=== PATIENT | male | born 1990 | race Caucasian/White ===

== ENCOUNTER 2016-03-28 10:43 | Emergency (ER) | payer BC ==
[2016-03-28 11:02] VITALS: BP 129/90; PULSE 52; RESP 15; TEMP 97.6
--- NOTE | 2016-03-28 11:43 | ED ---
General Adult HPI - General Chief complaint: Back Pain/Injury Stated complaint: back pain Time Seen by Provider: 03/28/16 11:15 Source: patient, RN notes reviewed, old records reviewed Mode of arrival: ambulatory Limitations: no limitations - History of Present Illness Initial comments: This is a 25-year-old male ER for evaluation of back pain. Patient has thoracic back pain. Chronic history of thoracic back pain, no specific medical history, no recent trauma. 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 Patient refusing medication for pain. States that she was chronic and would just like to get someone to make a diagnosis or help him with therapy. - Related Data Home Medications Medication Instructions Recorded Confirmed No Known Home Medications [No 03/28/16 03/28/16 Known Home Medications] Allergies Allergy/AdvReac Type Severity Reaction Status Date / Time No Known Allergies Allergy Verified 03/28/16 11:02 Review of Systems ROS Statement: Those systems with pertinent positive or pertinent negative responses have been documented in the HPI. ROS Other: All systems not noted in ROS Statement are negative. Past Medical History Past Medical History: No Reported History Additional Past Medical History / Comment(s): chronic back pain, heat murmur, leaking aortic valve History of Any Multi-Drug Resistant Organisms: None Reported Past Surgical History: No Surgical Hx Reported Past Psychological History: Bipolar Smoking Status: Former smoker Past Alcohol Use History: Occasional Past Drug Use History: None Reported General Exam Limitations: no limitations General appearance: alert, in no apparent distress Head exam: Present: atraumatic, normocephalic, normal inspection Eye exam: Present: normal appearance, PERRL, EOMI. Absent: scleral icterus, conjunctival injection, periorbital swelling ENT exam: Present: normal exam, mucous membranes moist Neck exam: Present: normal inspection. Absent: tenderness, meningismus, lymphadenopathy Respiratory exam: Present: normal lung sounds bilaterally. Absent: respiratory distress, wheezes, rales, rhonchi, stridor Cardiovascular Exam: Present: regular rate, normal rhythm, normal heart sounds. Absent: systolic murmur, diastolic murmur, rubs, gallop, clicks GI/Abdominal exam: Present: soft, normal bowel sounds. Absent: distended, tenderness, guarding, rebound, rigid Extremities exam: Present: normal inspection, full ROM, normal capillary refill. Absent: tenderness, pedal edema, joint swelling, calf tenderness Back exam: Present: normal inspection Neurological exam: Present: alert, oriented X3, CN II-XII intact Psychiatric exam: Present: normal affect, normal mood Skin exam: Present: warm, dry, intact, normal color. Absent: rash Course Vital Signs 03/28/16 10:58 Temperature 97.6 F Pulse Rate 52 L Respiratory 15 Rate Blood Pressure 129/90 O2 Sat by Pulse 99 Oximetry - Reevaluation(s) Reevaluation #1: 03/28/16 11:42 Patient's in no acute distress, no neurological dysfunction Medical Decision Making - Medical Decision Making 24 mL for evaluation of thoracic and upper extremity radiculopathy. Patient with no specific bony tenderness, no recent trauma. No IV drug abuse no fevers. Patient states his foot injury years ago, just wants to get follow-up with headaches. We'll provide patient with follow-up and discharged home, patient refusing any kind anti-inflammatories or pain medication. Disposition Clinical Impression: Thoracic back pain, Radiculopathy, thoracic region Disposition: HOME SELF-CARE Condition: Good Instructions: Lumbar Radiculopathy (ED) Referrals: Charles Bradford DO [Doctor of Osteopathic Medicine] - 1-2 days
== END 2016-03-28 11:55 | disposition home or self-care (01) ==
LOC: EC 10:43
DX: M54.6 Pain in thoracic spine (principal); M54.14 Radiculopathy, thoracic region; Z87.891 Personal history of nicotine dependence
CPT/HCPCS: 99283

== ENCOUNTER 2016-05-07 07:51 | Emergency (ER) | payer BC, OTHER ==
--- NOTE | 2016-05-07 08:56 | ED ---
General Adult HPI - General Chief complaint: Wound/Laceration Stated complaint: Laceration, [facility] Time Seen by Provider: 05/07/16 08:06 Source: patient, RN notes reviewed Mode of arrival: ambulatory Limitations: no limitations - History of Present Illness Initial comments: Patient 25-year-old male who presents emergency room today with a chief complaint of laceration located to his chin that occurred approximately 30 minutes ago at work. He does admit that he was using a chop saw when it kicked back causing this laceration. He states his tetanus is up-to-date. He denies any other injuries or complaints. Patient denies any recent fever, chills, shortness of breath, chest pain, back pain, abdominal pain, nausea or vomiting, numbness or tingling, dysuria or hematuria, constipation or diarrhea, headaches or visual changes, or any other complaints. - Related Data Previous Rx's Medication Instructions Recorded Cephalexin [Keflex] 500 mg PO Q12HR 7 Days 05/07/16 Allergies Allergy/AdvReac Type Severity Reaction Status Date / Time No Known Allergies Allergy Verified 03/28/16 11:02 Review of Systems ROS Statement: Those systems with pertinent positive or pertinent negative responses have been documented in the HPI. ROS Other: All systems not noted in ROS Statement are negative. Past Medical History Past Medical History: No Reported History Additional Past Medical History / Comment(s): chronic back pain, heat murmur, leaking aortic valve History of Any Multi-Drug Resistant Organisms: None Reported Past Surgical History: No Surgical Hx Reported Past Psychological History: Bipolar Smoking Status: Former smoker Past Alcohol Use History: Occasional Past Drug Use History: None Reported General Exam - General Exam Comments Initial Comments: General: The patient is awake and alert, in no distress, and does not appear acutely ill. Eye: Pupils are equal, round and reactive to light, extra-ocular movements are intact. No nystagmus. There is normal conjunctiva bilaterally. No signs of icterus. Ears, nose, mouth and throat: There are moist mucous membranes and no oral lesions. Neck: The neck is supple, there is no tenderness or JVD. Cardiovascular: There is a regular rate and rhythm. No murmur, rub or gallop is appreciated. Respiratory: Lungs are clear to auscultation, respirations are non-labored, breath sounds are equal. No wheezes, stridor, rales, or rhonchi. Musculoskeletal: Normal ROM, no tenderness. Strength 5/5. Sensation intact. Pulses equal bilaterally 2+. Neurological: A&O x 3. CN II-XII intact, There are no obvious motor or sensory deficits. Coordination appears grossly intact. Speech is normal. Skin: Patient does have a 4/2 cm linear laceration to left side underneath his chin. No active bleeding. Psychiatric: Cooperative, appropriate mood & affect, normal judgment. Limitations: no limitations Course Vital Signs 05/07/16 07:55 Temperature 97.2 F L Pulse Rate 61 Respiratory 18 Rate Blood Pressure 135/90 O2 Sat by Pulse 100 Oximetry Procedures - Procedures Initial comment: 4.5 cm linear laceration The skin was anesthetized with 1% lidocaine. The laceration was then cleansed with Betadine and irrigated with normal saline. The wound was inspected, and there was no evidence of injury to deep structures. No foreign body was noted in the wound. A total of 8 skin sutures were placed utilizing 5-0 nylon. Disposition Clinical Impression: Laceration Disposition: HOME SELF-CARE Condition: Good Instructions: Laceration (ED) Additional Instructions: Please return to the emergency room in 5 days to have sutures removed. Please watch for any signs of infection which may include increased pain, swelling, redness, fever or chills. Please return to emergency room for any signs of infection do occur. Please use clean soap and water over the area to prevent scabbing over your stitches. Please leave wound covered for the first 24-48 hours and then leave wound open to air. Please return to the emergency room for any other concerns. Prescriptions: Cephalexin [Keflex] 500 mg PO Q12HR 7 Days Time of Disposition: 08:55
[2016-05-07 09:03] VITALS: BP 158/71; PULSE 58; RESP 16; TEMP 97.9
== END 2016-05-07 09:02 | disposition home or self-care (01) ==
LOC: EC 07:51
DX: S01.81XA Laceration without foreign body of other part of head, initial encounter (principal); X58.XXXA Exposure to other specified factors, initial encounter
CPT/HCPCS: 12013; 99282